=== PATIENT | male | born 1960 | race Caucasian/White ===

== ENCOUNTER 2016-06-11 18:59 | Emergency (ER) | payer OTHER ==
[~2016-06-11 18:59] MED LIST: BUFFERIN LOW DO81 MG PO; DOLOPHINE10 MG PO; METHADONE H5 MG/5 ML PO; ZOFRAN ODT4 MG SL
[2016-06-11 19:18] VITALS: BP 152/100
[2016-06-11] MEDS ORDERED: CYCLOBENZAPRINE10 M1 PO (20:09)
[2016-06-11] MEDS ORDERED: PREDNISONE10 M2 PO (20:09)
--- NOTE | 2016-06-11 20:09 | ED NECK/BACK PAIN COMPLAINT ---
History of Present Illness General Chief Complaint: Lower Extremity Problems Stated Complaint: R KNEE/HIP PAIN X 7 DAYS Source: patient, old records Exam Limitations: no limitations Vital Signs & Intake/Output Vital Signs & Intake/Output Vital Signs Date Time Temp Pulse Resp B/P Pulse O2 O2 Flow FiO2 Ox Delivery Rate 06/11 1917 98.4 92 22 152/100 98 Room Air Allergies Coded Allergies: MDX - No Known Allergies - Nka (NO KNOWN ALLERGIES - NKA) (11/10/13) Reconcile Medications Cyclobenzaprine HCl 10 MG TABLET 1 TAB PO Q8P PAIN OR SPASM METHADONE HCL (Methadone HCl) 5 MG/5 ML SOLUTION 70 MG PO DAILY WITHDRAWLS ( Reported) Ondansetron (Zofran Odt) 4 MG TAB.RAPDIS 1 TAB SL TID PRN NAUSEA Ondansetron (Zofran Odt) 4 MG TAB.RAPDIS 1 TAB SL Q8 NAUSEA Prednisone 10 MG TABLET 1 TAB PO DAILY sciatica TAKE 4 TABS FOR 3 DAYS THEN TAKE 3 TABS FOR 3 DAYS THEN TAKE 2 TABS FOR 3 DAYS THEN TAKE 1 TAB FOR 3 DAYS Triage Note: PER PT PAIN TO RT BACK FLANK AREA ALL THE WAY DOWN TO RT LEG AND CALF, INCLUDING HIP. PT REPORTS 3 DAYS BUT TODAY WAS AT [facility] AND HAD TO RENT A SCOOTER, PT IN PAIN MANAGEMENT AND CANT SEE UNTIL 06/27. STRONG ODOR OF MARIJUANA EYES BLOODSHT. Triage Nurses Notes Reviewed? yes HPI: Patient presents with pain in his right lower back that radiates down his right leg. The pain started approximately 1 week ago. Pain is intermittent and is sharp and stabbing in nature. Patient only gets the pain when he is walking however there are other times when he is walking on it does not have the pain. Patient has never had the pain while at rest. When he has the pain is 10 out of 10 sharp and stabbing in nature. It is exacerbated by walking. The pain goes away with rest. Patient is in pain management and takes 10 mg of Percocet which patient states is not helping the pain. There is no weakness or numbness. There is no incontinence of bowel or bladder. Past History Travel History Traveled to [place] past 21 day No Medical History Any Pertinent Medical History? see below for history Neurological: NONE EENT: NONE Cardiovascular: NONE Respiratory: NONE Gastrointestinal: NONE Hepatic: NONE Renal: NONE Musculoskeletal: PAIN MANAGEMENT Psychiatric: NONE Endocrine: NONE Surgical History Surgical History: non-contributory Psychosocial History Who do you live with Patient/Self Services at Home None What is your primary language Luxembourgish Tobacco Use: Current Not Daily Daily Tobacco Use Amount/Type: => 5 Cigarettes daily ETOH Use: denies use Illicit Drug Use: marijuana Family History Family History, If Any: FATHER FH: Parkinson's disease Hx Contributory? No Review of Systems Review of Systems Constitutional: Reports: no symptoms. Eyes: Reports: no symptoms. Ears, Nose, Throat, Mouth: Reports: no symptoms. Respiratory: Reports: no symptoms. Cardiovascular: Reports: no symptoms. Gastrointestinal/Abdominal: Reports: no symptoms. Musculoskeletal: Reports: see HPI, back pain. Skin: Reports: no symptoms. Neurological/Psychological: Reports: no symptoms. All Other Systems: Reviewed and Negative Physical Exam Physical Exam General Appearance: well developed/nourished, alert, awake, mild distress Head: atraumatic Eyes: Bilateral: PERRL, EOMI. Ears, Nose, Throat, Mouth: hearing grossly normal Neck: normal inspection, supple, no midline tenderness Respiratory: normal breath sounds Cardiovascular: regular rate/rhythm, normal peripheral pulses Gastrointestinal: normal bowel sounds, soft, non-tender Back: normal inspection Extremities: non-tender, normal range of motion, NO EDEMA Straight Leg Raising: Right: Negative. Left: Negative. DTR: Patellar: 3: L4 Right, L4 Left. Achilles: 2: S1 Right, S1 Left. Neurologic/Psych: awake, alert, oriented x 3, normal mood/affect Skin: intact, normal color, warm/dry Progress Differential Diagnosis: herniated disc, myofascial strain, sciatica Plan of Care: Current Medications Sig/Yuni Start time Last Medication Dose Stop Time Status Admin Prednisone 60 MG ONCE ONE 06/11 2014 UNVr 06/11 2016 Departure Departure Disposition: HOME OR SELF CARE Condition: Stable Clinical Impression Primary Impression: Sciatica of right side Referrals: PATIENT HAS NO PRIMARY CARE DR (PCP/Family) Additional Instructions: follow up with your doctor for further evaluation and treamtnet return if symptoms worsen or for any concerns Departure Forms: Customer Survey General Discharge Information Prescriptions: Current Visit Scripts Cyclobenzaprine HCl 1 TAB PO Q8P #20 TAB Prednisone 1 TAB PO DAILY #30 TAB TAKE 4 TABS FOR 3 DAYS THEN TAKE 3 TABS FOR 3 DAYS THEN TAKE 2 TABS FOR 3 DAYS THEN TAKE 1 TAB FOR 3 DAYS
== END 2016-06-11 20:17 ==
LOC: ERH 18:59
DX: M54.41 Lumbago with sciatica, right side (principal)

== ENCOUNTER 2017-08-07 12:29 | Emergency (ER) | payer OTHER ==
[~2017-08-07] VITALS: Ht 180.3 cm; Wt 108.9 kg
[~2017-08-07 12:29] MED LIST changes: +AMOXICILLIN250 M3 PO; +CYCLOBENZAPRINE10 M1 PO; +PREDNISONE10 M2 PO
[2017-08-07 12:45] VITALS: BP 136/96
--- NOTE | 2017-08-07 13:11 | ED CARDIAC/CP/PALPITATIONS ---
History of Present Illness General Chief Complaint: Chest Pain Stated Complaint: CHEST PRESSURE Source: patient Exam Limitations: no limitations Vital Signs & Intake/Output Vital Signs & Intake/Output Vital Signs Date Time Temp Pulse Resp B/P B/P Pulse O2 O2 Flow FiO2 Mean Ox Delivery Rate 08/07 1332 96 Room Air 08/07 1245 98.1 96 18 136/96 95 Room Air Allergies Coded Allergies: MDX - No Known Allergies - Nka (NO KNOWN ALLERGIES - NKA) (11/10/13) Reconcile Medications Amoxicillin 250 MG CAPSULE 1 CAP PO TID CELLULITIS Cyclobenzaprine HCl 10 MG TABLET 1 TAB PO Q8P PAIN OR SPASM METHADONE HCL (Methadone HCl) 5 MG/5 ML SOLUTION 70 MG PO DAILY WITHDRAWLS ( Reported) Ondansetron (Zofran Odt) 4 MG TAB.RAPDIS 1 TAB SL TID PRN NAUSEA Ondansetron (Zofran Odt) 4 MG TAB.RAPDIS 1 TAB SL Q8 NAUSEA Prednisone 10 MG TABLET 1 TAB PO DAILY sciatica TAKE 4 TABS FOR 3 DAYS THEN TAKE 3 TABS FOR 3 DAYS THEN TAKE 2 TABS FOR 3 DAYS THEN TAKE 1 TAB FOR 3 DAYS Triage Note: 56 YEAR OLD MALE STATES THAT HE WOKE AT 0300 WITH PAIN IN HIS CHEST, DESCRIBES SOMEONE STANDING ON HIS CHEST, ALSO STATES THAT HE HAD NUMBNESS AND TINGLING IN HIS R ARM. ALSO STATES THAT HE HAS BEEN HAVING WHAT HE STATES IS LIKE A HOT FLASH. Triage Nurses Notes Reviewed? yes Onset: Gradual Duration: minute(s): Timing: multiple episodes today Quality/Severity: moderate, pressure Location: substernal Radiation: no radiation HPI: 56-year-old male with history of hypertension and chronic knee pain presents emergency department complaining of chest pain episode at 3 AM this morning. Patient states that he was at rest when chest pain occurred. Pain described as substernal/left chest, without radiation pressure, 5/10, lasting 5 minutes. Patient reports associated paresthesias to right arm involving fourth and fifth digits which lasted minutes and has resolved. Chest pain resolves on its own and after several minutes patient had second episode of chest pain. Patient presented to the emergency department for further evaluation. Patient reports intermittent diaphoresis and chills for the past 3 weeks. Patient drinks one to 2 beers per day, smokes about 1 pack of cigarettes per month, and smokes marijuana. He formerly used cocaine, has not used cocaine for years. The patient denies presyncope, dyspnea, abdominal pain, vomiting, fevers, chills, leg swelling, hemoptysis. (Chelsy Moreno) Past History Travel History Traveled to [place] past 21 day No Medical History Any Pertinent Medical History? see below for history Neurological: NONE EENT: NONE Cardiovascular: hypertension Respiratory: NONE Gastrointestinal: NONE Hepatic: NONE Renal: NONE Musculoskeletal: PAIN MANAGEMENT Psychiatric: NONE Endocrine: NONE Surgical History Surgical History: non-contributory Psychosocial History Who do you live with Patient/Self Services at Home None What is your primary language Nepalese Tobacco Use: Current Daily Use Daily Tobacco Use Amount/Type: =< 4 Cigarettes daily ETOH Use: heavy use Illicit Drug Use: marijuana Family History Family History, If Any: FATHER FH: Parkinson's disease Hx Contributory? No (Chelsy Moreno) Review of Systems Review of Systems Constitutional: Reports: see HPI. EENTM: Reports: no symptoms. Respiratory: Reports: see HPI. Cardiovascular: Reports: no symptoms. GI: Reports: no symptoms. Genitourinary: Reports: no symptoms. Musculoskeletal: Reports: no symptoms. Skin: Reports: no symptoms. Neurological/Psychological: Reports: see HPI. Hematologic/Endocrine: Reports: no symptoms. Immunologic/Allergic: Reports: no symptoms. All Other Systems: Reviewed and Negative (Chelsy Moreno) Physical Exam Physical Exam General Appearance: well developed/nourished, no apparent distress, alert, awake Head: atraumatic, normal appearance Eyes: Bilateral: normal appearance. Ears, Nose, Throat: hearing grossly normal Neck: normal inspection, supple, full range of motion Respiratory: normal breath sounds, chest non-tender, no respiratory distress, lungs clear Cardiovascular: regular rate/rhythm, normal peripheral pulses Peripheral Pulses: 2+ radial (R), 2+ radial (L) Gastrointestinal: normal bowel sounds, soft, non-tender, no organomegaly Back: normal inspection, normal range of motion Extremities: normal inspection, normal range of motion Neurologic/Psych: awake, alert, oriented x 3 Skin: intact, normal color, warm/dry Core Measures ACS in differential dx? Yes CVA/TIA Diagnosis No Sepsis Present: No Sepsis Focused Exam Completed? No (Chelsy Moreno) Progress Differential Diagnosis: AMI, atrial fibrillation, costochondritis, hyperventilation, musculoskeletal pain, myocarditis, pericarditis, pneumonia, pneumothorax, pulmonary embolism, unstable angina Plan of Care: Orders Procedure Date/time Status TROPONIN LEVEL 08/07 1251 Complete COMPREHENSIVE METABOLIC PANEL 08/07 1251 Complete CBC WITHOUT DIFFERENTIAL 08/07 1251 Complete EKG 08/07 1230 Active Laboratory Tests 08/07/17 1308: Anion Gap 12, Estimated GFR > 60, BUN/Creatinine Ratio 12.2, Glucose 102 H, Calcium 10.1, Total Bilirubin 1.0, AST 34, ALT 44, Alkaline Phosphatase 85, Troponin I < 0.01, Total Protein 8.0, Albumin 4.9, Globulin 3.1, Albumin/ Globulin Ratio 1.6, CBC w Diff NO MAN DIFF REQ, RBC 5.61, MCV 88.4, MCH 29.4, MCHC 33.2, RDW 13.4, MPV 7.6, Gran % 73.5, Lymphocytes % 19.4 L, Monocytes % 6.6, Eosinophils % 0.3, Basophils % 0.2, Absolute Granulocytes 8.6 H, Absolute Lymphocytes 2.3, Absolute Monocytes 0.8 H, Absolute Eosinophils 0, Absolute Basophils 0 Patient's EKG is in sinus rhythm, troponin enzyme is negative. Chest x-ray within normal limits. Patient has been chest pain-free for approximately 5-6 hours. Vital signs are stable, he is in no acute distress. It was recommended patient stay for repeat EKG and troponin enzymes to further rule out acute coronary syndrome however patient states he has to leave at this time. All risks and benefits to leaving prior to full workup were discussed with the patient, he is aware and understands the risks however is declining further evaluation at this time. Dr. De Anda made aware of patient's decision to leave prior to second set of EKG and troponin. Patient was given a prescription return precautions. Patient was given outpatient cardiology referral. The patient agrees with plan of care. Diagnostic Imaging: Viewed by Me: Radiology Read. Discussed w/RAD: Radiology Read. CXR Impression: PATIENT: RACH ANDERSON PRESENT AGE: 56 PATIENT ACCOUNT NO: [id number] : 62 LOCATION: [facility] ORDERING PHYSICIAN: Chelsy PUENTE SERVICE DATE: 08/07/17-1304 EXAM TYPE: RAD - XRY-CHEST XRAY, TWO VIEWS EXAMINATION: XR CHEST CLINICAL INFORMATION: Chest pain COMPARISON: None TECHNIQUE: 2 views of the chest were obtained. FINDINGS: Cardiomediastinal silhouette is within normal limits. Visualized lungs are clear. No acute airspace opacity. Bony thorax is intact. IMPRESSION: No acute pulmonary disease. DICTATED BY: Corey Ballesteros MD DATE/TIME DICTATED:08/07/171353 [employer]IDENCE LIFE DIRECTOR:ILEANA DATE/TIME TRANSCRIBED:08/07/171353 CONFIDENTIAL, DO NOT COPY WITHOUT APPROPRIATE AUTHORIZATION. <Electronically signed in Other Vendor System> SIGNED BY: Corey Ballesteros MD 08/07/17 2082 Initial ED EKG: sinus rhythm @ 88bpm, nonspecific ST changes Prior EKG: unchanged (06/18/13) (Shell PUENTE,Chelsy Haines) Departure Departure Disposition: HOME OR SELF CARE Condition: Stable Clinical Impression Primary Impression: Chest pain Qualifiers: Chest pain type: unspecified Qualified Code: R07.9 - Chest pain, unspecified Secondary Impressions: Diaphoresis, Paresthesias Referrals: Shady Alvarez MD Unknown (PCP/Family) Additional Instructions: You are leaving prior to completion of our workup here in the emergency department, there are risks involved with leaving without further testing as discussed. We are referring you to a algologist. Please call to make an appointment with the algologist. Return with any worsening symptoms or concerns such as increasing chest pain, shortness of breath, feeling is that he may pass out, abdominal pain. Please note that there might be incidental findings in your evaluation that are unrelated to the current emergency department visit. Please notify your primary care doctor about this emergency department visit in order to obtain and review all of the testing performed so that these incidental findings can be monitored as needed. If you had an x-ray performed, please understand that some fractures may not be seen on the initial set of x-rays. If your symptoms persist you might need a repeat set of x-rays to check for such a fracture. If you had a laceration evaluated, please understand that foreign bodies such as glass or wood may not be visible to the naked eye or on plain x-rays. If the wound becomes red, swollen, increasingly more painful or if there is any drainage from the wound, please have it reevaluated by a physician for the possibility of a retained foreign body. If you're unable to follow up as outlined in the discharge instructions please return to the emergency department. Thank you for choosing the [facility] Emergency Department for your care. It was a pleasure to serve you today. Departure Forms: Customer Survey General Discharge Information (Shell PUENTE,Chelsy Haines) PA/CREDIT CARD ANALYST Co-Sign Statement Statement: ED Attending supervision documentation- [X] I saw and evaluated the patient. I have also reviewed all the pertinent lab results and diagnostic results. I agree with the findings and the plan of care as documented in the PA's/CREDIT CARD ANALYST's documentation. [X [] Additions or exceptions (if any) to the PAs/CREDIT CARD ANALYST's note and plan are summarized below: [Patient left after just one set of enzymes. Patient refuses to stay for further evaluation and workup. Patient is awake alert and oriented 3 and competent to make these decisions.] (Adilson TREVINO,Edgar Louis) Critical Care Note Critical Care Note Critical Care Time: non-applicable (Chelsy Moreno)
[2017-08-07 13:23] LABS: ABSOLUTE BASOPHIL COUNT 0 /CUMM (0.0-0.2); ABSOLUTE EOSINOPHIL COUNT 0 /CUMM (0.0-0.7); ABSOLUTE GRANULOCYTE CT 8.6 /CUMM (1.4-6.5); ABSOLUTE LYMPH COUNT 2.3 /CUMM (1.2-3.4); ABSOLUTE MONOCYTE COUNT 0.8 /CUMM (0.10-0.60); BASOPHIL % 0.2 % (0.0-2.0); EOSINOPHIL % 0.3 % (0-5); GRANULOCYTE % 73.5 % (42.2-75.2); HEMATOCRIT 49.6 % (42-52); MEAN CORPUSCULAR HGB 29.4 PG (27.0-31.0); MEAN CORPUSCULAR HGB CONC 33.2 G/DL (33.0-37.0); MEAN CORPUSCULAR VOLUME 88.4 FL (80.0-94.0); MEAN PLATELET VOLUME 7.6 FL (7.4-10.4); PLATELET COUNT 340 /CUMM (130-400); RBC DISTRIBUTION WIDTH 13.4 % (11.5-14.5); RED BLOOD CELL CT 5.61 /CUMM (4.70-6.10); WHITE BLOOD CELL COUNT 11.7 /CUMM (4.8-10.8)
--- NOTE | 2017-08-07 13:57 | RADIOLOGY REPORT ---
EXAMINATION: XR CHEST CLINICAL INFORMATION: Chest pain COMPARISON: None TECHNIQUE: 2 views of the chest were obtained. FINDINGS: Cardiomediastinal silhouette is within normal limits. Visualized lungs are clear. No acute airspace opacity. Bony thorax is intact. IMPRESSION: No acute pulmonary disease.
== END 2017-08-07 14:22 ==
LOC: ERH 12:29
PROVIDERS: Emergency Medicine
DX: R07.89 Other chest pain (principal); R61 Generalized hyperhidrosis; R20.2 Paresthesia of skin
CPT/HCPCS: 71046; 93005; 93010